=== PATIENT | female | born 1995 | race Caucasian/White ===

== ENCOUNTER 2020-07-04 18:03 | Observation (INO) | payer BC, OTHER ==
[~2020-07-04] VITALS: Ht 152.4 cm; Wt 67.4 kg
--- NOTE | 2020-07-04 18:09 | NUR ---
PT BIBA FOR ABDOMINAL PAIN FROM URGENT CARE. 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 DENIES ANY MEDICAL HX. PT CHANGED INTO GOWN, MONITORS IN PLACE. CALL LIGHT WITHIN REACH
--- NOTE | 2020-07-04 18:45 | NUR ---
REPORT TO [facility] ZAMUDIO
--- NOTE | 2020-07-04 18:47 | NUR ---
ASSUMED CARE OF PT FROM [facility]. PT RESTING IN [facility], MONITORING IN PLACE, STACIE AT THIS TIME, TING.
[2020-07-04 18:51] LABS: MEAN CORPUSCULAR HEMOGLOBIN 31.3 pg (27.0-34.8); MEAN PLATELET VOLUME 6.8 fL (7.4-10.4); PLATELET COUNT 285 x10^3/uL (130-400); RED BLOOD COUNT 4.56 x10^6/uL (3.82-5.3); RED CELL DISTRIBUTION WIDTH 11.9 % (9.6-15.2)
[2020-07-04 18:52] LABS: ALANINE AMINOTRANSFERASE 15 U/L (12-78); ALBUMIN 4.3 g/dL (3.4-5.0); ANION GAP 6 mmol/L (5-15); CALCIUM 9.1 mg/dL (8.5-10.1); CHLORIDE 107 mmol/L (98-107); CREATININE 0.81 mg/dL (0.55-1.02)
[2020-07-04 18:53] LABS: MICROSCOPIC AUTO
[2020-07-04 18:57] LABS: ALKALINE PHOSPHATASE 58 U/L (45-117); BILIRUBIN,TOTAL 0.8 mg/dL (0.2-1.0); TOTAL PROTEIN 7.4 g/dL (6.4-8.2)
--- NOTE | 2020-07-04 19:10 | NUR ---
US AT BEDSIDE AT THIS TIME.
[2020-07-04 19:14] LABS: MD YES
[2020-07-04 19:16] LABS: <PLATELET ESTIMATE> ADEQUATE; <PLT MORPHOLOGY> NORMAL PLT MORPH; <RBC MORPHOLOGY> NORMAL; BAND#(MANUAL) 2.33 x10^3/uL; BANDS%(MANUAL) 12 % (0-7); LYMPH#(MANUAL) 0.78 x10^3/uL (1-3.4); LYMPHS% (MANUAL) 4 % (22-44); MONOS#(MANUAL) 0.78 x10^3/uL (0.3-2.7); MONOS% (MANUAL) 4 % (2-9); REACTIVE LYMPHS # (MANUAL) 0.39 x10^3/uL (0-0); REACTIVE LYMPHS % (MANUAL) 2 % (0-0); SEG#(MANUAL) 15.13 x10^3/uL (1.8-6.8); SEGS% (MANUAL) 78 % (42-75)
--- NOTE | 2020-07-04 20:01 | NUR ---
PT RESTING IN [facility], MONITORING IN PLACE, WARM BLANKET OFFERED, NADN AT THIS TIME, TING.
[2020-07-04] MEDS ORDERED: OMNIPAQUE 350 MG/ML, 100ML BOTTLE ONE (20:06)
--- NOTE | 2020-07-04 20:24 | NUR ---
PT RESTING IN [facility], MONITORING IN PLACE, NADN AT THIS TIME, WCTM. COVID TEST WALKED DOWN TO LAB AT THIS TIME. DR. OWUSU AT BEDSIDE TO DISCUSS POC.
[2020-07-04] MEDS ORDERED: CEFOTETAN PMX 1GM/50ML 50 ML IVPB ONE (20:30)
[2020-07-04] MEDS ORDERED: BUPIVACAINE/PF 0.5% ONE (20:46)
[2020-07-04] MEDS ORDERED: EPINEPHRINE 1 MG/ML, 1ML ONE (20:46)
[2020-07-04] MEDS ORDERED: SODIUM CHLORIDE 0.9% 1,000 ML IV ONE (21:00)
[2020-07-04] MEDS ORDERED: MIDAZOLAM 1 MG/ML, 2ML ONE (21:01)
[2020-07-04] MEDS ORDERED: FENTANYL PF 100 MCG/2ML ONE ×3 (21:01→21:33)
[2020-07-04] MEDS ORDERED: PROPOFOL 10 MG/ML, 20ML ONE (21:15)
[2020-07-04] MEDS ORDERED: ONDANSETRON 2MG/ML, 2ML ONE (21:15)
[2020-07-04] MEDS ORDERED: CEFAZOLIN 1,000 MG ONE (21:15)
[2020-07-04] MEDS ORDERED: GLYCOPYRROLATE 0.2MG/1ML, 5ML ONE (21:15)
[2020-07-04] MEDS ORDERED: NEOSTIGMINE 1 MG/ML, 10ML ONE (21:15)
[2020-07-04] MEDS ORDERED: SUCCINYLCHOLINE 20 MG/ML, 10ML ONE (21:15)
[2020-07-04] MEDS ORDERED: ROCURONIUM 10 MG/ML,10ML ONE (21:20)
[2020-07-04] MEDS ORDERED: DEXAMETHASONE 4 MG/ML, 1ML ONE (21:20)
[2020-07-04] MEDS ORDERED: morphine SULFATE 10 MG/ML, 1ML IVPush PRN (21:30)
[2020-07-04] MEDS ORDERED: FENTANYL PF 100 MCG/2ML IV PRN (21:30)
[2020-07-04] MEDS ORDERED: OXYcodone 5 MG/5 ML ORAL.SOL UDC PO PRN ×2 (21:30→23:30)
[2020-07-04] MEDS ORDERED: LABETALOL 5MG/ML, 20ML IV PRN (21:30)
[2020-07-04] MEDS ORDERED: hydrALAzine 20 MG/ML, 1ML IV PRN (21:30)
[2020-07-04] MEDS ORDERED: HYDROmorphone 1 MG/ML, 1ML INJ IVPush PRN (21:30)
[2020-07-04] MEDS ORDERED: ACETAMINOPHEN 325 MG TABLET PO PRN (21:30)
[2020-07-04] MEDS ORDERED: HALOPERIDOL 5 MG/ML IV PRN (21:30)
[2020-07-04] MEDS ORDERED: PROMETHAZINE 25 MG/ML, 1ML IVPush PRN (21:30)
[2020-07-04] MEDS ORDERED: MEPERIDINE/PF 25MG/0.5ML IVPush PRN (21:30)
[2020-07-04] MEDS ORDERED: OXYC5TAB2 PO (22:02)
[2020-07-04] MEDS ORDERED: DOCU100C33 PO (22:02)
[2020-07-04] MEDS ORDERED: ACET325T26 PO (22:02)
[2020-07-04] MEDS ORDERED: MEPERIDINE/PF 25MG/ML,1ML ONE (22:02)
[2020-07-04] MEDS ORDERED: ACETAMINOPHEN 650 MG/20.3 ML UDC ONE (22:30)
[2020-07-04] MEDS ORDERED: DIPHENHYDRAMINE 25 MG CAPSULE PO PRN (23:30)
[2020-07-04] MEDS ORDERED: KETOROLAC 30 MG/1 ML IV PRN (23:30)
[2020-07-04] MEDS ORDERED: ONDANSETRON 2MG/ML, 2ML IV PRN (23:30)
[2020-07-04] MEDS ORDERED: DIPHENHYDRAMINE 50 MG/ML, 1ML IV PRN (23:30)
[2020-07-04] MEDS ORDERED: LACTATED RINGERS 500 ML IV PRN (23:30)
[2020-07-04] MEDS: LABETALOL 5MG/ML, 20ML IVPush SCH (23:30)
[2020-07-04] MEDS ORDERED: ENOXAPARIN 40 MG/0.4 ML SQ SCH (23:30)
[2020-07-04] MEDS ORDERED: SODIUM CHLORIDE 0.9%, 500ML IV PRN (23:30)
[2020-07-05] MEDS: ACETAMINOPHEN 325 MG TABLET PO SCH ×2 (01:15→08:40)
[2020-07-05 01:55] VITALS: BP 98/62
[2020-07-05] MEDS: LABETALOL 5MG/ML, 20ML IVPush SCH (06:50)
[2020-07-05 06:55] VITALS: BP 118/66
[2020-07-05] MEDS ORDERED: ENOXAPARIN 40 MG/0.4 ML SQ SCH (09:00)
[2020-07-05 09:50] VITALS: BP 104/65
[2020-07-05] MEDS ORDERED: IBUP-1222 PO (09:56)
== END 2020-07-05 10:41 | disposition home or self-care (01) ==
LOC: ED 18:17 → INTOOBSV 20:24 → EDIP 20:24 → 4NE 22:56 → DCLOUNGE 07-05 10:29 → 4WST 07-05 10:45 → DCLOUNGE 07-05 10:45
PROVIDERS: ADMIT Student in an Organized Health Care Education/Training Program; ATTEND Student in an Organized Health Care Education/Training Program
DX: K35.80 Unspecified acute appendicitis (principal); Z20.822 Contact with and (suspected) exposure to COVID-19; N83.00 Follicular cyst of ovary, unspecified side
CPT/HCPCS: 36415; 44970; 74177; 76856; 80053; 81001; 83690; 84703; 85025; 87086; 87635; 88304; 96361; 96365; 96372; 99285; G0378; J0171; J0330; J0690; J1100; J1650; J2175; J2250; J2405; J2704; J2710; J3010; J7030; Q9967; S0020; 96374